=== PATIENT | male | born 1980 | race Caucasian/White ===

== ENCOUNTER 2023-05-12 18:42 | Emergency (ER) | payer OTHER, SELFPAY ==
[2023-05-12 18:45] VITALS: BP 168/96; PULSE 75; RESP 15; TEMP 37.2; O2SAT 95; BMI 39.0
--- NOTE | 2023-05-12 18:48 | DI.RAD.S_ITS ---
PROCEDURE: XR RIBS LT MIN 3V W CXR1V INDICATIONS: fall 1 week ago,rib pain TECHNIQUE: 3 views of the left ribs were acquired, along with a single view chest. COMPARISON: None. FINDINGS: Surgical changes and devices: None. Bones and chest wall: No fractures or dislocations. No suspicious bony lesions. Overlying soft tissues appear unremarkable. Lungs and pleura: No pleural effusions or pneumothorax. Lungs appear clear. Mediastinum: Mediastinal contours appear normal. Heart size is normal. IMPRESSION: No displaced fracture or pneumothorax. Dictated by: Tamir Pollock M.D. on 05/12/2023 at 19:38 Approved by: Tamir Pollock M.D. on 05/12/2023 at 19:39
== END 2023-05-12 22:45 | disposition left against medical advice (07) ==
PROVIDERS: Emergency Provider Emergency Medicine
DX: R07.81 Pleurodynia (principal)
CPT/HCPCS: 71101; 99281